=== PATIENT | female | born 1985 | race African-American/Black ===

== ENCOUNTER 2018-11-21 21:22 | Emergency (ER) | payer MEDICAID ==
[~2018-11-21] VITALS: Ht 160 cm; Wt 52.3 kg
[2018-11-21 21:28] VITALS: TEMP 98
[2018-11-21 22:22] LABS: BASO % 0.7 % (0.0-2.0); EOS # 0.1 (0.0-0.7); EOS % 1.1 % (0-4.0); GRAN # 3.1 (1.4-6.5); GRAN % 57.3 % (42.2-75.2); LYMPH # 1.4 (1.2-3.4); LYMPH % 25.9 % (20.0-51.0); MEAN CELL VOLUME 93 fl (80.0-100.0); MEAN CORPUSCULAR HEMOGLOBIN 32 pg (27.0-31.0); MEAN CORPUSCULAR HGB CONC 34 g/dl (33.0-37.0); MEAN PLATELET VOLUME 10.2 fl (7.4-10.4); MONO # 0.8 (0.1-0.6); MONO % 14.8 % (1.7-9.3); PLATELET COUNT 124 K/mm3 (130-400); RED BLOOD COUNT 3.74 M/mm3 (4.10-5.30); REDCELL DISTRIBUTION WIDTH-CV 12.1 % (11.5-14.5)
[2018-11-21 22:23] LABS: HEMATOCRIT 34.9 % (37.0-47.0)
[2018-11-21 22:23] LABS: COLLECTION METHOD CLEAN CATCH
[2018-11-21 22:34] LABS: AMORPHOUS CRYSTAL Present /uL; MUCOUS Present /lpf; PH 6 (5-8); SQUAMOUS EPITHELIAL >50 /hpf; URINE APPEARANCE Turbid; URINE BACTERIA Rare /hpf; URINE BILIRUBIN Negative (NEGATIVE); URINE BLOOD Negative (NEGATIVE); URINE COLOR Yellow; URINE GLUCOSE Negative (NEGATIVE); URINE KETONE Negative (NEGATIVE); URINE LEUKOCYTE ESTERASE Trace (NEGATIVE); URINE NITRATE Negative (NEGATIVE); URINE PROTEIN(semi-quant) Negative (NEGATIVE); URINE RBC 0-2 /hpf; URINE UROBILINOGEN Negative (NEGATIVE)
[2018-11-21 22:44] LABS: TRICYCLIC ANTIDEPRESS URINE NEGATIVE
[2018-11-21 22:49] LABS: ALANINE AMINOTRANSFERASE 52 U/L (9-52); ALBUMIN 4.2 gm/dL (3.5-5.0); ALKALINE PHOSPHATASE 73 U/L (50-136); ANION GAP 10 mmol/L (7-16); AST,SGOT 57 U/L (15-37); BILIRUBIN,TOTAL 0.5 mg/dL (0.0-1.0); BLOOD UREA NITROGEN 10 mg/dL (7-17); CALCIUM 8.6 mg/dL (8.4-10.2); CARBON DIOXIDE 27 mmol/L (22-30); CHLORIDE 98 mmol/L (98-107); GLUCOSE 88 mg/dL (74-106); SODIUM 135 mmol/L (137-145); TOTAL PROTEIN 7.4 gm/dL (6.4-8.2)
[2018-11-21 22:50] LABS: ACETAMINOPHEN < 10 ug/mL (10-30); ALCOHOL(ethanol),MEDICAL < 10 mg/dL; SALICYLATE < 1.0 mg/dL
[2018-11-22] MEDS ORDERED: DEPAKOTE ER 50500 MG PO (09:24)
[2018-11-22 10:10] VITALS: BP 121/88; PULSE 82
--- NOTE | 2018-11-22 10:50 | NUR ---
DONALD met with the patient in the ed to discuss a discharge plan. The patient is currently [facility] in [place], [place] with her 10 year old son. Before this stay at the [facility] the patient and her son lived in [place]. The patient will receive her medications from [facility]. The patient stated she took her son out of school on Friday because they will be leaving on a [employer] Bus to [place] tomorrow morning, 11/23. The patient plans to return to the [facility] for the night upon discharge. DONALD contacted the [facility] and spoke to Juanita about transporation for the patient. Juanita contacted Tristen, the staff medication specialist for the [facility]. DONALD spoke with Tristen and she stated that she could burr picker the patient if she was returning to the Crisis [facility]. DONALD spoke with the patient and the patient's nurse and both were in agreeance to return to the Crisis Center. DONALD [facility] to ensure the [facility]'s medications would be covered by her insurance. [employer] confirmed the medications would be covered, so a voucher was not needed. There are no additional needs at this time.
== END 2018-11-22 10:40 | disposition home or self-care (01) ==
LOC: COL.ER 21:22
PROVIDERS: Emergency Medicine
DX: E87.6 Hypokalemia (principal); R56.9 Unspecified convulsions; R44.3 Hallucinations, unspecified; F17.210 Nicotine dependence, cigarettes, uncomplicated
CPT/HCPCS: J2060; J7030